=== PATIENT | female | born 1990 | race Caucasian/White ===

== ENCOUNTER 2025-08-18 13:28 | Emergency (ER) | payer MEDICAID, OTHER ==
[~2025-08-18] VITALS: Ht 165.1 cm; Wt 54.0 kg
[2025-08-18] MEDS ORDERED: IV D5 LR 1,000 ML IV ONE (14:30)
[2025-08-18 14:51] LABS: PLATELET COUNT (AUTO) 201 K/uL (150-450); RED BLOOD CELL COUNT(AUTO) 4.28 MIL/uL (4.0-5.2); RED CELL DISTRIBUTION WIDTH 13.9 % (11.5-15.0); WHITE BLOOD COUNT (AUTO) 5.5 K/uL (4.3-11.0)
[2025-08-18 14:57] LABS: CALCIUM, SERUM 9.4 mg/dL (8.5-10.1); CREATININE 0.7 mg/dL (0.6-1.3); SODIUM SERUM 141.0 mmol/L (136-145); UREA NITROGEN, BLOOD 18.0 mg/dL (7-18)
[2025-08-18 14:59] LABS: PHOSPHORUS 3.7 mg/dL (2.5-4.9)
[2025-08-18] MEDS: IV D5 LR 1,000 ML IV ONE (15:00)
[2025-08-18 15:02] LABS: ASPARTATE AMINOTRANSFERASE 21.0 U/L (15-37); TOTAL PROTEIN, SERUM 7.9 g/dL (6.4-8.2)
[2025-08-18] MEDS ORDERED: ESCI5TAB PO (15:45)
[2025-08-18 16:37] VITALS: BP 124/75; TEMP 98.1; O2SAT 98
== END 2025-08-18 16:37 | disposition home or self-care (01) ==
LOC: ER 13:28
DX: F50.00 Anorexia nervosa, unspecified (principal); F41.9 Anxiety disorder, unspecified; F32.A Depression, unspecified; Z79.899 Other long term (current) drug therapy
CPT/HCPCS: 99284; 96360; 93005; 85025; 80048; 83690; 80076; 83735; 84100; 36415; J3490 ×3